=== PATIENT | female | born 1965 | race African-American/Black ===

== ENCOUNTER 2016-12-21 20:14 | Emergency (ER) ==
--- NOTE | 2016-12-21 20:45 | PROVIDER DOCUMENTATION ---
HPI-Syncope/Dizziness - General Source: patient - History of Present Illness-Syncope/Dizzy Prior Episodes: reports: other (SYNCOPAL EPISODE THIS PAST AUGUST) Onset/Duration: reports: 1-3 hours ago Timing: reports: intermittent Position/Activity at time of episode: reports: sitting, standing Symptoms prior to episode: reports: lightheaded, diaphoresis. denies: headache , chest pain Context: reports: lost consciousness. denies: incontinent of urine, incontinent of stool, breathing stopped, lost pulse, seizure activity observed Loss of Consciousness: brief (seconds) Location of injury. (If syncope resulted in an injury.): reports: none Current Symptoms: reports: none/feels normal Recently Seen Here or By Another Healthcare Provider: No - Dizziness Severity in ED: reports: mild Dizziness Related Current/Associated Symptoms: reports: dizzy, lightheaded, syncope. denies: nausea/vomiting, weakness, ringing/roaring in ears, unable to sit up, chronic dizziness Any recent trauma/injury?: reports: none Modifying Factors: improves with: changing position, standing position, other medication Patient usually:: reports: walks without assistance <Yessenia Beckford - Last Filed: 12/21/16 20:40> <Kristen Mitchell - Last Filed: 12/21/16 21:41> - General Chief Complaint: Syncope Stated Complaint: DIZZY, PASS OUT AT WORK Time Seen by Provider: 12/21/16 20:31 Allergies/Adverse Reactions: Patient Allergies Allergy/AdvReac Type Severity Reaction Status Date / Time No Known Allergies Allergy Verified 12/21/16 21:08 Home Medications: Home Medication List Medication Instructions Recorded Confirmed Last Taken Type Nitrofurantoin Monohyd/M-Cryst 100 mg PO BID #14 capsule 12/21/16 Unknown Rx [Macrobid 100 mg Capsule] - History of Present Illness-Syncope/Dizzy Nature of Presenting Problem: PT IS A 51YOF PRESENTING TO THE ED C/O SYNCOPE. PT STATES SHE STARTED A NEW BP MEDICATION ABOUT A WEEK AGO AND TODAY SHE WAS AT WORK, SHE FELT LIKE SHE NEEDED TO HAVE A BM AND SHE BECAME REAL HOT AND SWEATY. SHE STOOD UP AND WENT TO GO TO THE [facility] AND HAD A SYNCOPAL EPISODE. PT DENIES HITTING OR HURTING HERSELF WHEN SHE PASSED OUT. SHE DENIES ANY PAIN ANYWHERE, JUST DIZZY PRIOR AND AFTER SYNCOPAL EPISODE. SHE STATES SHE PASSED OUT IN AUGUST WELL BUT NO OTHER COMPLAINTS OR SYMPTOMS NOTED AT THIS TIME (AnalyYessenia) Review of Systems - Adult - REVIEW OF SYSTEMS - ADULT Constitutional: reports: no symptoms reported Eyes: reports: no symptoms reported Ears, Nose, Mouth & Throat: reports: no symptoms reported Cardiovascular: reports: no symptoms reported Respiratory: reports: no symptoms reported Gastrointestinal: reports: no symptoms reported Genitourinary: reports: no symptoms reported Musculoskeletal: reports: no symptoms reported Integumentary: reports: no symptoms reported Neurological: reports: see HPI, dizziness/vertigo, syncope. denies: loss of balance, seizure, tremors Psychiatric: reports: no symptoms reported Endocrine: reports: no symptoms reported Hematologic/Lymphatic: reports: no symptoms reported Allergic/Immunologic: reports: no symptoms reported All Other Systems: Reviewed and Negative <Yessenia Beckford - Last Filed: 12/21/16 20:40> Past History - Adult - PAST MEDICAL HISTORY-ADULT Review of Records: reports: Old Records Reviewed, Nursing Assessment Review, Medications Reviewed, Social history reviewed & non-contributory. Major Childhood Illnesses: reports: denies history Cardiovascular: reports: denies history Respiratory: reports: denies history Gastrointestinal: reports: denies history Obstetrical/Gynecological: reports: denies history Genitourinary: reports: denies history Musculoskeletal: reports: denies history Neurological: reports: denies history Endocrine/Immune: reports: denies history Other Conditions: reports: denies history - IMMUNIZATION STATUS Childhood Immunizations: See Nurse Assessment Flu Vaccine: See Nurse Assessment - FAMILY HISTORY Family History: reviewed, not pertinent - SOCIAL HISTORY Smoking: denies, non-smoker Substance Use: none/never, denies Alcohol Use Frequency: never Living Situation: family <Yessenia Beckford - Last Filed: 12/21/16 20:40> Physical Exam-General - PHYSICAL EXAM-ADULT Initial Vital Signs Reviewed: Yes - CONSTITUTIONAL General Appearance: appears well, alert, no apparent distress, anxious - EYES Eyes: PERRL/EOMI, pink conjunctivae - HEAD, EARS, NOSE, MOUTH & THROAT HENMT: normocephalic/atraumatic, moist mucous membranes, normal ENT inspection, TMs normal, pharynx normal - NECK Neck: non-tender, full range of motion, supple, normal inspection - RESPIRATORY Respiratory: chest non-tender, lungs clear, normal breath sounds, no pleuratic chest pain, no respiratory distress, no accessory muscle use - CARDIOVASCULAR Cardiovascular: normal peripheral pulses, regular rate, rhythm, no edema, no gallop, no JVD, no murmur - GASTROINTESTINAL (ABDOMEN) Abdominal Exam: normal bowel sounds, non tender, soft, no organomegaly, no pulsatile mass - LYMPHATIC Lymphatic: no adenopathy - MUSCULOSKELETAL Back Exam: normal inspection, no CVA tenderness, no vertebral tenderness Extremity: normal range of motion, non-tender, normal gait, normal inspection, no pedal edema, no calf tenderness, normal capillary refill, pelvis stable - SKIN Integumentary: normal color, normal turgor, warm/dry - NEUROLOGIC Neurologic: machine inker II-XII nml as tested, grossly normal, no motor/sensory deficits - PSYCHIATRIC Psych/Mental Status: normal mood/affect, normal thought content, normal thought process, oriented x 3, anxious <Yessenia Beckford - Last Filed: 12/21/16 20:40> Progress <Yessenia Beckford - Last Filed: 12/21/16 20:40> <Kristen Mitchell - Last Filed: 12/21/16 21:41> - PLAN OF CARE/RESULTS Progress/Plan/Lab Results: Vital Signs Temp Pulse Resp BP Pulse Ox 12/21/16 21:18 85 13 115/74 99 12/21/16 20:21 97.6 F 90 20 117/53 100 No Known Allergies Allergy (Verified 12/21/16 21:08) Home Meds Unobtainable 12/21/16 I&O 12/20/16 12/21/16 12/22/16 06:59 06:59 06:59 Output Total 30 Balance -30 Laboratory 12/21/16 12/21/16 12/21/16 21:25 21:16 21:09 WBC RBC Hgb Hct MCV MCH MCHC RDW Std Deviation Plt Count MPV Immature Gran % (Auto) Neut % (Auto) Lymph % (Auto) [place] % (Auto) Eos % (Auto) Baso % (Auto) Immature Gran # (Auto) Neut # (Auto) Lymph # (Auto) [place] # (Auto) Eos # (Auto) Baso # (Auto) Sodium Potassium Chloride Carbon Dioxide Anion Gap BUN Creatinine Estimated GFR/1.73 m2 BUN/Creatinine Ratio Glucose POC Glucose 163 H Calculated Osmolality Calcium Total Bilirubin AST ALT Alkaline Phosphatase Total Protein Albumin Globulin Albumin/Globulin Ratio Urine Source CLEAN CATCH Cancelled Urine Color YELLOW Cancelled Urine Turbidity HAZY Cancelled Urine pH 5.5 Cancelled Ur Specific [place] 1.017 Cancelled Urine Protein 70 A Cancelled Ur Glucose (Stick) NEGATIVE Cancelled Ur Ketones (Stick) NEGATIVE Cancelled Urine Blood SMALL A Cancelled Urine Nitrite NEGATIVE Cancelled Urine Bilirubin SMALL A Cancelled Urobilinogen Dipstick 2 A Cancelled Urine Leukocytes SMALL A Cancelled Urine WBC (Auto) Cancelled Urine RBC (Auto) Cancelled U Epithel Cells (Auto) Cancelled Urine Bacteria (Auto) Cancelled 12/21/16 12/21/16 20:50 20:50 WBC 9.97 RBC 4.07 L Hgb 11.4 L Hct 35.4 L MCV 87.0 MCH 28.0 MCHC 32.2 L RDW Std Deviation 13.4 Plt Count 346 MPV 10.2 Immature Gran % (Auto) 0.0 Neut % (Auto) 68.2 Lymph % (Auto) 23.7 [place] % (Auto) 6.7 Eos % (Auto) 1.2 Baso % (Auto) 0.2 Immature Gran # (Auto) 0.00 Neut # (Auto) 6.80 H Lymph # (Auto) 2.36 [place] # (Auto) 0.67 H Eos # (Auto) 0.12 Baso # (Auto) 0.02 Sodium 138 Potassium 3.4 L Chloride 98 Carbon Dioxide 26 Anion Gap 14 BUN 20 Creatinine 1.7 H Estimated GFR/1.73 m2 38 BUN/Creatinine Ratio 12 Glucose 149 H POC Glucose Calculated Osmolality 281 Calcium 9.3 Total Bilirubin 0.50 AST 25 ALT 24 Alkaline Phosphatase 96 Total Protein 8.3 Albumin 4.0 Globulin 4.3 Albumin/Globulin Ratio 0.9 Urine Source Urine Color Urine Turbidity Urine pH Ur Specific [place] Urine Protein Ur Glucose (Stick) Ur Ketones (Stick) Urine Blood Urine Nitrite Urine Bilirubin Urobilinogen Dipstick Urine Leukocytes Urine WBC (Auto) Urine RBC (Auto) U Epithel Cells (Auto) Urine Bacteria (Auto) Orders Category Date Time Status ED: Orthostatic Vital Signs (E as directed Care 12/21/16 20:50 Active HEAD W/O CONTRAST [CT] Stat Exams 12/21/16 20:50 Taken CBC WITH ELECTRONIC DIFF [HEME] Stat Lab 12/21/16 20:50 Completed COMPREHENSIVE METABOLIC PANEL [CHEM] Stat Lab 12/21/16 20:50 Completed UA NIMS W/REFLEX CULT [URINALYSIS] Routine Lab 12/21/16 21:25 Results URINE DRUG SCREEN Routine Lab 12/21/16 21:25 Received 0.9% Sodium Chloride Inj [Ns] 1,000 ml Med 12/21/16 21:30 Active IV 999 mls/hr EKG [EKG] Stat Ther 12/21/16 20:24 Ordered (Kristen Mitchell) Departure <Yessenia Beckford - Last Filed: 12/21/16 20:40> - Departure Time of Disposition Order: 21:41 Certified Medical Emergency: Emergent <Kristen Mitchell - Last Filed: 12/21/16 21:41> - Departure DIAGNOSIS: Acute UTI, Creatinine elevation Episode of syncope Qualifiers: Syncope type: unspecified Qualified Code(s): R55 - Syncope and collapse Disposition: HOME 01 Condition: Stable Additional Instructions: Follow up with your primary care physician for your Creatinine ED Follow Up Instructions: You have been treated by a care provider in the Emergency Department. These instructions are being provided to you so you can have an understanding of how to care for yourself upon discharge. Upon discharge from the Emergency Department, you are responsible for making arrangements for follow-up care by a physician of your choice. Take all prescribed medications as directed. Return to the Emergency Department immediately for any new or worsening symptoms. You may call the Physician Referral phone number at [phone] to obtain a list of Physicians who are taking new patients. Prescriptions: Nitrofurantoin Monohyd/M-Cryst [Macrobid 100 mg Capsule] 100 mg PO BID #14 capsule Attestation - Scribe Verification/Attestation Scribe:: Yessenia Beckford Acting as Scribe for:: Kristen Mitchell Scribe documention review:: This chart was documented by a scribe and accurately reflects the service the provider performed and the decisions made by the provider. <Yessenia Beckford - Last Filed: 12/21/16 20:40> Physician Attestation - Physician Attestation I, the provider, attest to the following statement:: Ferny Barrera Physician documentation Attestation:: This documentation recorded by the scribe accurately reflects the service I personally performed and the decisions made by me. <Yessenia Beckford - Last Filed: 12/21/16 20:40>
--- NOTE | 2016-12-21 20:51 | ED EKG INTERP ---
EKG Interpretation - EKG Time of EKG reading by physician:: 20:30 EKG Read and Signed by:: Ferny Barrera EKG Interpretation (*Must complete 3 of following elements*): Abnormal Rate: 80 Rhythm: NSR QRS: LVH, other (CANNOT RULE OUT SEPTAL INFARCT, AGE UNDETERMINED) Attestation - Scribe Verification/Attestation Scribe:: Yessenia Beckford Acting as Scribe for:: Ferny Barrera Scribe documention review:: This chart was documented by a scribe and accurately reflects the service the provider performed and the decisions made by the provider. Physician Attestation - Physician Attestation I, the provider, attest to the following statement:: Ferny Barrera Physician documentation Attestation:: This documentation recorded by the scribe accurately reflects the service I personally performed and the decisions made by me.
[2016-12-21 21:09] LABS: MANUAL DIFF NEEDED? NO
[2016-12-21 21:27] LABS: BASO% 0.2 % (0.0-0.8); EOS# 0.12 X1000 (0.0-0.7); EOS% 1.2 % (0.0-10.0); HEMATOCRIT 35.4 % (37.0-47.0); HEMOGLOBIN 11.4 g/dL (12.0-16.0); LYMPH# 2.36 X1000 (1.2-3.4); LYMPH% 23.7 % (20.5-51.1); MCHC 32.2 g/dL (33-37); MONO# 0.67 X1000 (0.11-0.59); MONO% 6.7 % (1.7-9.3); MPV 10.2 FL (7.4-10.4); NEUT% 68.2 % (42.2-75.2); PLT 346 X1000 (130-400); RBC 4.07 XMIL (4.2-5.4)
[2016-12-21 21:27] LABS: URINE SOURCE CLEAN CATCH
[2016-12-21 21:29] LABS: CALCIUM 9.3 mg/dL (8.8-10.2); POTASSIUM 3.4 mmol/L (3.5-5.1); TOTAL BILIRUBIN 0.5 mg/dL (0.20-1.00); TOTAL PROTEIN 8.3 g/dL (6.3-8.3)
[2016-12-21] MEDS ORDERED: NS 1,000 ML IV ONE (21:30)
[2016-12-21 21:32] LABS: BILIRUBIN URINE SMALL (NEGATIVE); BLOOD URINE SMALL (NEGATIVE); COLOR YELLOW; GLUCOSE URINE NEGATIVE (NEGATIVE); LEUKOCYTES URINE SMALL (NEGATIVE); NITRITE URINE NEGATIVE (NEGATIVE); PH URINE 5.5; PROTEIN URINE 70 mg/dL (NEGATIVE); SP GRAVITY URINE 1.017; TURBIDITY URINE HAZY (CLEAR); UROBILINOGEN URINE 2 mg/dL (NORMAL)
[2016-12-21 21:41] LABS: UR EPITHELIAL CELLS <10 /HPF (<10); URINE BACTERIA 3+ /HPF; URINE CULTURE NEEDED? YES; URINE MICRO REVIEW NEEDED? YES
[2016-12-21] MEDS ORDERED: MACROBID PO ONE (21:42)
[2016-12-21 21:44] LABS: UR AMPHETAMINES QUAL NONE DETECTED (NONE DETECT); UR BARBITUATES QUAL NONE DETECTED (NONE DETECT); UR BENZODIAZEPIN QUAL NONE DETECTED (NONE DETECT); UR CANNABINOIDS QUAL NONE DETECTED (NONE DETECT); UR COCAINE QUAL NONE DETECTED (NONE DETECT); UR METHADONE QUAL NONE DETECTED (NONE DETECT); UR OPIATES QUAL NONE DETECTED (NONE DETECT); UR OXYCODONE QUAL NONE DETECTED (NONE DETECT); UR PCP QUAL NONE DETECTED (NONE DETECT)
[2016-12-21 22:04] LABS: URINE CASTS NONE SEEN; URINE CRYSTALS NONE SEEN; URINE SMALL ROUND CELLS TRANS PRESENT
[2016-12-21 23:10] VITALS: BP 143/89
--- NOTE | 2016-12-22 06:11 | EKG Report ---
Test Performed on : 12/21/2016 8:30:57 PM Test Reason : syncope Blood Pressure : / mmHG Vent. Rate : 080 BPM Atrial Rate : 080 BPM P-R Int : 148 ms QRS Dur : 088 ms QT Int : 400 ms P-R-T Axes : 039 006 019 degrees QTc Int : 461 ms Normal sinus rhythm. Voltage criteria for left ventricular hypertrophy Cannot rule out Septal infarct (cited on or before 12-DEC-2011) Abnormal ECG When compared with ECG of 12-DEC-2011 13:55, No significant change was found Unconfirmed Result
--- NOTE | 2016-12-22 08:09 | Diag Imaging Result Document ---
PROCEDURE NAME: HEAD W/O CONTRAST - 12/21/[address]: COMPARISON: 12/12/2011. FINDINGS: The ventricles and sulci are normal in size and contour. There is no mass, hemorrhage, or evidence of acute ischemia. The bony calvaria is intact. The visualized paranasal sinuses and mastoid air cells are clear. IMPRESSION: Negative head CT.
== END 2016-12-21 23:22 | disposition home or self-care (01) ==
LOC: ED 20:14
DX: N39.0 Urinary tract infection, site not specified (principal); R55 Syncope and collapse; R79.89 Other specified abnormal findings of blood chemistry; R94.31 Abnormal electrocardiogram [ECG] [EKG]; R42 Dizziness and giddiness; R61 Generalized hyperhidrosis
CPT/HCPCS: 70450; 80053; 81001; 82948; 85025; 87088; 93005; G0480; J7030; 80324; 80345; 80346; 80349; 80353; 80358; 80361; 80365; 83992